=== PATIENT | female | born 1990 | race Caucasian/White ===

== ENCOUNTER 2017-09-25 11:22 | Day surgery (SDC) | payer OTHER ==
[2017-09-25] MEDS ORDERED: HYDROmorphONE 1 MG/5 ML IV SYRINGE IV ×2 (13:00→14:00)
[2017-09-25] MEDS ORDERED: ONDANSETRON 4 MG INJ IV ×2 (13:00→14:00)
[2017-09-25] MEDS ORDERED: CEFAZOLIN 1 GM/50 ML (PMX) 50 ML IVPB (13:00)
[2017-09-25] MEDS ORDERED: hydrALAzine 20 MG INJ IV ×2 (13:00→14:00)
[2017-09-25] MEDS ORDERED: SOD CHLORIDE 0.9% 1,000 ML IV (13:00)
[2017-09-25] MEDS ORDERED: LABETALOL HCL 20MG INJ IV ×2 (13:00→14:00)
[2017-09-25] MEDS ORDERED: FENTAnyl 50 MCG/ML VIAL IV ×4 (13:00→14:00)
[2017-09-25] MEDS ORDERED: MEPERIDINE 25 MG INJ IV ×2 (13:00→14:00)
[2017-09-25] MEDS ORDERED: FENTAnyl 50 MCG/ML VIAL ×2 (13:48→15:52)
[2017-09-25] MEDS ORDERED: LIDOCAINE 2% (SDV) 5 ML INJ (13:48)
[2017-09-25] MEDS ORDERED: ROCURONIUM 50 MG INJ ×2 (13:48→15:23)
[2017-09-25] MEDS ORDERED: PROPOFOL 20 ML ×4 (13:48→15:53)
[2017-09-25] MEDS ORDERED: MIDAZOLAM 1 MG/ML 2 ML INJ (13:48)
[2017-09-25] MEDS ORDERED: ALBUTEROL 0.083% (NEB) 2.5 MG/3 ML AMP HHN (14:00)
[2017-09-25] MEDS ORDERED: HYDROCODONE/APAP (5/325) TAB PO ×2 (14:00)
[2017-09-25] MEDS ORDERED: CEFAZOLIN 1 GM INJ (14:11)
[2017-09-25] MEDS ORDERED: ACETAMINOPHEN 1000MG/100ML IV 100 ML (14:11)
[2017-09-25] MEDS ORDERED: ONDANSETRON 4 MG INJ (14:13)
[2017-09-25] MEDS ORDERED: DEXAMETHASONE 4 MG/ML 1 ML INJ (14:13)
[2017-09-25] MEDS ORDERED: FAMOTIDINE 20 MG INJ (14:13)
[2017-09-25] MEDS ORDERED: METOCLOPRAMIDE 10 MG INJ (14:20)
[2017-09-25] MEDS ORDERED: PROPOFOL 100 ML (14:20)
[2017-09-25] MEDS: METHYLENE BLUE 1% 10 ML INJ (14:22)
[2017-09-25] MEDS ORDERED: SUGAMMADEX SODIUM 200 MG/2 ML VIAL IV (14:22)
[2017-09-25] MEDS ORDERED: GLYCOPYRROLATE 0.4 MG INJ (14:30)
[2017-09-25] MEDS: BUPIVACAINE 0.5%/EPI (SDV) 30 ML INJ (16:08)
[2017-09-25] MEDS: LIDOCAINE 1% (MPF) 30 ML INJ (16:09)
[2017-09-25] MEDS: HYDROmorphONE 1 MG/5 ML IV SYRINGE IV (16:53)
== END 2017-09-25 17:35 | disposition home or self-care (01) ==
LOC: SDS 11:22
DX: L05.91 Pilonidal cyst without abscess (principal)
CPT/HCPCS: 11772; 84703; 88304